=== PATIENT | female | born 1960 ===

== ENCOUNTER 2016-05-15 09:14 | Day surgery (SDC) | payer OTHER ==
[2016-04-19 08:30] VITALS: BMI 40.6
[2016-05-15] MEDS ORDERED: Lactated Ringer's 500 ML IV ONE (10:18)
[2016-05-15] MEDS ORDERED: Propofol 10 mg/ml Inj (20 ML) ONE (10:56)
[2016-05-15 12:10] VITALS: BP 97/49; PULSE 68; RESP 14; TEMP 96.9; O2SAT 97
== END 2016-05-15 12:29 | disposition home or self-care (01) ==
LOC: H.ENDO 09:14
PROVIDERS: ATTEND Internal Medicine Gastroenterology
DX: Z12.11 Encounter for screening for malignant neoplasm of colon (principal); E11.9 Type 2 diabetes mellitus without complications; E78.5 Hyperlipidemia, unspecified; K64.8 Other hemorrhoids

== ENCOUNTER 2016-09-07 12:24 | Emergency (ER) | payer SELFPAY ==
[2016-09-07 12:32] VITALS: RESP 19; O2SAT 98; BMI 40.0
[2016-09-07] MEDS ORDERED: Sodium Chloride 0.9% 1,000 ML IV STA (12:39)
[2016-09-07] MEDS ORDERED: DiphenhydrAMINE 50 mg/ml Inj IV STA (12:40)
[2016-09-07] MEDS ORDERED: DiphenhydrAMINE 50 mg/ml Inj ONE (12:56)
[2016-09-07 13:46] LABS: BASO # 0.1 K/uL (0.0-0.2); BASO % 1.3 % (0.0-2.0); EOS # 0.1 K/uL (0.0-0.7); EOS % 1.5 % (0.0-4.0); HEMOGLOBIN 12.4 g/dL (12.0-16.0); LYMPH # 2.6 K/uL (1.0-4.3); LYMPH % 32.4 % (20.0-40.0); MEAN CELL VOLUME 74.9 fl (81.0-99.0); MEAN CORPUSCULAR HEMOGLOBIN 23.4 pg (27.0-31.0); MEAN CORPUSCULAR HGB CONC 31.3 g/dL (33.0-37.0); MEAN PLATELET VOLUME 8.5 fl (7.2-11.7); MONO # 0.5 K/uL (0.0-0.8); MONO % 6.5 % (0.0-10.0); NEUT # 4.7 K/uL (1.8-7.0); NEUT % 58.3 % (50.0-75.0); RBC 5.29 Mil/uL (3.80-5.20); RED CELL DISTRIBUTION WIDTH 18.4 % (11.5-14.5); WHITE BLOOD COUNT 8.1 K/uL (4.8-10.8)
[2016-09-07 13:52] LABS: BLOOD UREA NITROGEN 14 mg/dl (7-17); CALCIUM 9.9 mg/dL (8.4-10.2); GFR AFRICAN-AMERICAN > 60; GFR NON-AFRICAN AMERICAN > 60
--- NOTE | 2016-09-07 16:17 | ED PDOC ---
HPI: General Adult Time Seen by Provider: 09/07/16 12:38 Chief Complaint (Nursing): Headache Chief Complaint (Provider): headache, facial tingling History Per: Patient History/Exam Limitations: no limitations Current Symptoms Are (Timing): Still Present Recently: Treated By A Physician Additional Complaint(s): 56yo female c/o headache and facial tingling which started during an MRI of the brain with contrast. She states the banging sound of the MRI triggered the headache. She denies SOB, chest pain, throat swelling, rash or syncope. Past Medical History Reviewed: Historical Data, Nursing Documentation, Vital Signs Vital Signs: Last Vital Signs Temp 97.6 F 09/07/16 12:32 Pulse 70 09/07/16 12:32 Resp 19 09/07/16 12:32 BP 145/102 H 09/07/16 12:32 Pulse Ox 98 09/07/16 12:32 - Medical History PMH: Depression, Gastritis, Gastrointestinal Ulcer, HTN, Hypercholesterolemia, Hyperthyroidism Denies: Chronic Kidney Disease - Surgical History Surgical History: Endoscopy - Family History Family History: States: Unknown Family Hx - Social History Current smoker - smoking cessation education provided: No - Home Medications Home Medications: Ambulatory Orders Medication Instructions Recorded Lisinopril [Zestril] 10 mg PO DAILY #0 tab 12/02/14 Omeprazole [Prilosec] 20 mg PO DAILY #0 ecc 12/02/14 metFORMIN [glucOPHAGE] 500 mg PO BIDWM #0 tab 12/02/14 Bupropion HCl [Wellbutrin Sr] 150 mg PO DAILY 05/15/16 traMADol/Acetaminophen [Ultracet 1 tab PO Q4 PRN #12 tab 09/07/16 325 MG-37.5 MG] - Allergies Allergies/Adverse Reactions: Allergies Allergy/AdvReac Type Severity Reaction Status Date / Time Sulfa (Sulfonamide Allergy RASH Verified 12/07/15 11:11 Antibiotics) Review of Systems ROS Statement: Except As Marked, All Systems Reviewed And Found Negative Constitutional: Negative for: Fever, Chills Respiratory: Negative for: Cough, Shortness of Breath Gastrointestinal: Negative for: Nausea, Vomiting Musculoskeletal: Negative for: Neck Pain, Shoulder Pain Skin: Negative for: Rash, Lesions Neurological: Positive for: Headache, Dizziness. Negative for: Weakness, Numbness Physical Exam - Reviewed Nursing Documentation Reviewed: Yes Vital Signs Reviewed: Yes - Physical Exam Appears: Positive for: Well, Non-toxic, No Acute Distress Head Exam: Positive for: ATRAUMATIC, NORMAL INSPECTION, NORMOCEPHALIC Skin: Positive for: Normal Color, Warm, DRY Eye Exam: Positive for: EOMI, Normal appearance, PERRL ENT: Positive for: Normal ENT Inspection Neck: Positive for: Normal, Painless ROM Cardiovascular/Chest: Positive for: Regular Rate, Rhythm Respiratory: Positive for: CNT, Normal Breath Sounds Gastrointestinal/Abdominal: Positive for: Normal Exam, Bowel Sounds, Soft Back: Positive for: Normal Inspection Extremity: Positive for: Normal ROM Neurologic/Psych: Positive for: Alert, chief 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 Negative for: Motor/Sensory Deficits - Laboratory Results Result Diagrams: 09/07/16 13:20 09/07/16 13:20 - ECG O2 Sat by Pulse Oximetry: 98 Medical Decision Making Medical Decision Making: MRI brain reviewed Accession No. : [id number] Patient Name / ID : JUANA GUERRA / [id number] Exam Date : 09/07/2016 11:11:35 ( Approved ) Study Comment : Sex / Age : F / 56Y Creator : Alvarado Barrow MD Dictator : Alvarado Barrow MD Fly Fishing Guide : Medical Typist : Alvarado Barrow MD Approver2 : Report Date : 09/07/2016 13:59:51 My Comment : PROCEDURE: MRI BRAIN WITH AND WITHOUT CONTRAST HISTORY: R51 COMPARISON: Comparison made with prior CT scan brain 12/11/11 TECHNIQUE: Multiplanar, multisequence MR images of the brain were obtained with and without intravenous contrast enhancement. FINDINGS: HEMORRHAGE: No acute parenchymal, subarachnoid or extra-axial hemorrhage. No evidence of hemosiderin deposition identified on gradient echo weighted sequence DWI: No evidence of an acute or early subacute infarction seen on diffusion imaging. . BRAIN PARENCHYMA: Minor chronic periventricular white matter ischemic changes. ENHANCEMENT: No enhancing parenchymal nor extra-axial masses or collections. No evidence of unusual meningeal enhancement. VENTRICLES: Unremarkable. No hydrocephalus. CRANIUM: Unremarkable. ORBITS: Grossly unremarkable. PARANASAL SINUSES/MASTOIDS: Appears be some minor opacification of few left inferior mastoid air cells. VASCULAR SYSTEM: Visualized major vascular flow voids at skull base are patent. OTHER FINDINGS: There may also be a few small left peripancreatic lymph nodes nonspecific IMPRESSION: No acute intracranial hemorrhage or infarct. Mild chronic white matter ischemic changes. Labs reviewed, no clinically significant abnormalities. Given IVF, toradol, benadryl and tylenol w improvement. Vitals stable and remains neurologically intact. Given clinical exam and normal MRI brain, DC from ED. Followup clinic. Disposition - Clinical Impression Clinical Impression: Headache - Patient ED Disposition Is Patient to be Admitted: No Counseled Patient/Family Regarding: Studies Performed, Diagnosis - Disposition Referrals: [facility] [Outside] Disposition: Routine/Home Disposition Time: 16:00 Condition: STABLE Prescriptions: traMADol/Acetaminophen [Ultracet 325 MG-37.5 MG] 1 tab PO Q4 PRN #12 tab PRN Reason: Pain, Moderate (4-7) Instructions: Acute Headache (ED) Print Language: SLOVENIAN
[2016-09-08 11:58] VITALS: BP 150/83; PULSE 78
[2016-09-08 12:00] VITALS: TEMP 97.7
== END 2016-09-07 18:10 | disposition home or self-care (01) ==
LOC: H.ER 12:24
DX: R51 Headache (principal); R20.2 Paresthesia of skin

== ENCOUNTER 2017-01-19 10:21 | Emergency (ER) | payer SELFPAY ==
[2017-01-19 10:28] VITALS: BMI 39.6
[2017-01-19 10:30] VITALS: BP 175/96; PULSE 74; RESP 17; TEMP 98.3; O2SAT 98
--- NOTE | 2017-01-19 11:33 | ED PDOC ---
HPI: General Adult Time Seen by Provider: 01/19/17 10:31 Chief Complaint (Nursing): Cough, Cold, Congestion History Per: Patient Additional Complaint(s): Pt. states for the past 6 days she's had a cough productive of white sputum and over the past 3 days cough worsened. States that she's also developed a fever x 3 days. She took Motrin today at 0500 as she had a temperature of 104 prompting ED visit. Of note, pt.'s daughter has the same symptoms. Denies SOB, hemoptysis , chest pain, abdominal pain, headache, rash. Past Medical History Reviewed: Historical Data, Nursing Documentation, Vital Signs Vital Signs: Last Vital Signs Temp 98.3 F 01/19/17 10:28 Pulse 74 01/19/17 10:28 Resp 17 01/19/17 10:28 BP 175/96 H 01/19/17 10:28 Pulse Ox 98 01/19/17 11:33 - Medical History PMH: Depression, Gastritis, Gastrointestinal Ulcer, HTN, Hypercholesterolemia, Hyperthyroidism Denies: Chronic Kidney Disease - Surgical History Surgical History: Endoscopy - Family History Family History: States: No Known Family Hx - Home Medications Home Medications: Ambulatory Orders Medication Instructions Recorded Lisinopril [Zestril] 10 mg PO DAILY #0 tab 12/02/14 Omeprazole [Prilosec] 20 mg PO DAILY #0 ecc 12/02/14 metFORMIN [glucOPHAGE] 500 mg PO BIDWM #0 tab 12/02/14 Bupropion HCl [Wellbutrin Sr] 150 mg PO DAILY 05/15/16 Metoclopramide [Reglan] 10 mg PO BID PRN #10 tab 09/07/16 Naproxen [Naprosyn] 500 mg PO BID PRN #14 tablet 09/07/16 traMADol/Acetaminophen [Ultracet 1 tab PO Q4 PRN #12 tab 09/07/16 325 MG-37.5 MG] Amoxicillin/Clavulanate [Augmentin 1 tab PO TID #30 tab 01/19/17 500 MG-125 MG] Benzonatate [Tessalon Perle] 100 mg PO Q8 PRN #30 capsule 01/19/17 Ibuprofen [Motrin Tab] 800 mg PO Q8 PRN #30 tab 01/19/17 - Allergies Allergies/Adverse Reactions: Allergies Allergy/AdvReac Type Severity Reaction Status Date / Time Sulfa (Sulfonamide Allergy RASH Verified 12/07/15 11:11 Antibiotics) Review of Systems ROS Statement: Except As Marked, All Systems Reviewed And Found Negative Constitutional: Positive for: Fever Respiratory: Positive for: Cough, Sputum (white) Physical Exam - Reviewed Nursing Documentation Reviewed: Yes Vital Signs Reviewed: Yes - Physical Exam Appears: Positive for: Well, Non-toxic, No Acute Distress Head Exam: Positive for: ATRAUMATIC, NORMAL INSPECTION, NORMOCEPHALIC Skin: Positive for: Normal Color, Warm. Negative for: Rash Eye Exam: Positive for: EOMI, Normal appearance, PERRL ENT: Positive for: TM Is/Are (L TM erythematous and bulging; R TM WNL). Negative for: Pharyngeal Erythema, Tonsillar Exudate, Tonsillar Swelling Neck: Positive for: Normal, Painless ROM, Supple Cardiovascular/Chest: Positive for: Regular Rate, Rhythm Respiratory: Positive for: CNT, Normal Breath Sounds Gastrointestinal/Abdominal: Positive for: Normal Exam, Bowel Sounds, Soft. Negative for: Tenderness Back: Positive for: Normal Inspection. Negative for: L CVA Tenderness, R CVA Tenderness Extremity: Positive for: Normal ROM Neurologic/Psych: Positive for: Alert, Oriented. Negative for: Aphasia, Facial Droop - Laboratory Results Result Diagrams: 01/19/17 11:40 01/19/17 11:40 - ECG O2 Sat by Pulse Oximetry: 98 - Progress ED Course And Treament: Labs ordered. CXR ordered. Disposition - Clinical Impression Clinical Impression: Influenza, Otitis media - Patient ED Disposition Is Patient to be Admitted: No - Disposition Referrals: [facility] [Outside] Disposition: Routine/Home Disposition Time: 12:20 Condition: STABLE Prescriptions: Amoxicillin/Clavulanate [Augmentin 500 MG-125 MG] 1 tab PO TID #30 tab Benzonatate [Tessalon Perle] 100 mg PO Q8 PRN #30 capsule PRN Reason: Cough Ibuprofen [Motrin Tab] 800 mg PO Q8 PRN #30 tab PRN Reason: fever or pain Instructions: Influenza (ED), Otitis Media (ED) Forms: [facility] (Syriac) Print Language: PORTUGUESE
[2017-01-19 11:49] LABS: BASO # 0.1 K/uL (0.0-0.2); BASO % 0.9 % (0.0-2.0); EOS # 0.2 K/uL (0.0-0.7); EOS % 2.8 % (0.0-4.0); HEMATOCRIT 41.2 % (34.0-47.0); LYMPH # 2.3 K/uL (1.0-4.3); LYMPH % 30.1 % (20.0-40.0); MEAN CORPUSCULAR HEMOGLOBIN 23.7 pg (27.0-31.0); MEAN CORPUSCULAR HGB CONC 31.6 g/dL (33.0-37.0); MEAN PLATELET VOLUME 8.2 fl (7.2-11.7); MONO # 0.6 K/uL (0.0-0.8); MONO % 7.7 % (0.0-10.0); NEUT # 4.5 K/uL (1.8-7.0); NEUT % 58.5 % (50.0-75.0); NRBC % 0.2 % (0.0-0.0); RED CELL DISTRIBUTION WIDTH 17.7 % (11.5-14.5); WHITE BLOOD COUNT 7.6 K/uL (4.8-10.8)
[2017-01-19 12:15] LABS: ALB/GLOB RATIO 1.3 (1.0-2.1); ALKALINE PHOSPHATASE 100 U/L (38-126); ALT/SGPT 34 U/L (9-52); AST/SGOT 20 U/L (14-36); BILIRUBIN,TOTAL 0.4 mg/dl (0.2-1.3); BLOOD UREA NITROGEN 12 mg/dl (7-17); CALCIUM 9.4 mg/dL (8.4-10.2); CARBON DIOXIDE 23 mmol/L (22-30); CHLORIDE 110 mmol/L (98-107); GFR AFRICAN-AMERICAN > 60; GLUCOSE,RANDOM 119 mg/dL (65-105); SODIUM 142 mmol/l (132-148); TOTAL PROTEIN 7.5 G/DL (6.3-8.2)
--- NOTE | 2017-01-19 14:53 | RAD ---
HISTORY: cough COMPARISON: No prior. TECHNIQUE: Chest PA and lateral FINDINGS: LUNGS: No active pulmonary disease. PLEURA: No significant pleural effusion identified. No pneumothorax apparent. CARDIOVASCULAR: Normal. OSSEOUS STRUCTURES: No significant abnormalities. VISUALIZED UPPER ABDOMEN: Normal. OTHER FINDINGS: None. IMPRESSION: No active disease.
== END 2017-01-19 14:38 | disposition home or self-care (01) ==
LOC: H.ER 10:21
DX: J11.1 Influenza due to unidentified influenza virus with other respiratory manifestations (principal); H66.90 Otitis media, unspecified, unspecified ear; E05.90 Thyrotoxicosis, unspecified without thyrotoxic crisis or storm; E78.00 Pure hypercholesterolemia, unspecified; F32.9 Major depressive disorder, single episode, unspecified; I10 Essential (primary) hypertension; Z79.84 Long term (current) use of oral hypoglycemic drugs

== ENCOUNTER 2017-07-27 13:37 | Emergency (ER) | payer SELFPAY ==
[2017-07-27 13:37] VITALS: BMI 39.6
--- NOTE | 2017-07-27 15:02 | ED PDOC ---
HPI: CCC, URI, Sore Throat Time Seen by Provider: 07/27/17 14:14 Chief Complaint (Nursing): ENT Problem Chief Complaint (Provider): Right ear and throat pain History Per: Patient History/Exam Limitations: no limitations Have you had recent travel within the past 21 days to any of the following countries: [place], [place], [place] or [place]?: No Onset/Duration Of Symptoms: Days (x3) Current Symptoms Are (Timing): Still Present Sick Contacts (Context): Family Member(s) Associated Symptoms: denies: Fever, Cough, Nausea, Vomiting Ear Symptoms: Right: Ear Pain Additional Complaint(s): 57 year old female presented to the ED for evaluation of right ear and throat pain with onset of 3 days. Patient reports she developed a right sided headache with a rating of 6/10 secondary to pain. She took advil this morning at 06:00 for her pain and indicates multiple sick contacts. Denies fever, cough , SOB, abdominal pain, nausea, vomiting, recent travel, changes in vision, weakness, numbness, rash, neck pain, and stiffness. PMD: [facility] Past Medical History Reviewed: Historical Data, Nursing Documentation, Vital Signs Vital Signs: Last Vital Signs Temp 98 F 07/27/17 17:40 Pulse 80 07/27/17 17:40 Resp 18 07/27/17 17:40 BP 120/76 07/27/17 17:40 Pulse Ox 99 07/27/17 17:40 - Medical History PMH: Depression, Diabetes, Gastritis, Gastrointestinal Ulcer, HTN, Hypercholesterolemia, Hyperthyroidism Denies: Chronic Kidney Disease - Surgical History Surgical History: Endoscopy Other surgeries: Right foot procedure - Family History Family History: States: Unknown Family Hx - Social History Current smoker - smoking cessation education provided: No Alcohol: None Drugs: Denies - Home Medications Home Medications: Ambulatory Orders Medication Instructions Recorded Lisinopril [Zestril] 10 mg PO DAILY #0 tab 12/02/14 Omeprazole [Prilosec] 20 mg PO DAILY #0 ecc 12/02/14 metFORMIN [glucOPHAGE] 500 mg PO BIDWM #0 tab 12/02/14 Bupropion HCl [Wellbutrin Sr] 150 mg PO DAILY 05/15/16 Metoclopramide [Reglan] 10 mg PO BID PRN #10 tab 09/07/16 Naproxen [Naprosyn] 500 mg PO BID PRN #14 tablet 09/07/16 traMADol/Acetaminophen [Ultracet 1 tab PO Q4 PRN #12 tab 09/07/16 325 MG-37.5 MG] Amoxicillin/Clavulanate [Augmentin 1 tab PO TID #30 tab 01/19/17 500 MG-125 MG] Benzonatate [Tessalon Perle] 100 mg PO Q8 PRN #30 capsule 01/19/17 Ibuprofen [Motrin Tab] 800 mg PO Q8 PRN #30 tab 01/19/17 Meloxicam [Mobic] 15 mg PO DAILY PRN #10 tab 07/27/17 - Allergies Allergies/Adverse Reactions: Allergies Allergy/AdvReac Type Severity Reaction Status Date / Time Sulfa (Sulfonamide Allergy RASH Verified 12/07/15 11:11 Antibiotics) Review of Systems ROS Statement: Except As Marked, All Systems Reviewed And Found Negative Constitutional: Negative for: Fever, Chills ENT: Positive for: Ear Pain (right), Throat Pain Respiratory: Negative for: Cough, Shortness of Breath Gastrointestinal: Negative for: Nausea, Vomiting, Abdominal Pain Musculoskeletal: Negative for: Neck Pain (or stiffness) Neurological: Negative for: Weakness, Numbness Physical Exam - Reviewed Nursing Documentation Reviewed: Yes Vital Signs Reviewed: Yes - Physical Exam Comments: GENERAL APPEARANCE: Patient is awake, alert, oriented x 3, in no acute distress. SKIN: Warm, dry; (-) cyanosis. HEAD: (-) temporal artery tenderness NECK: Supple, FROM (-) stiffness, (-) tenderness, (-) lymphadenopathy. ENMT: Ear Canals : (-) erythema, (-) exudate. TMs: (-) bulging and (-) erythema (-) perforation,(-) vesicles bilaterally. Frontal / maxillary sinuses : (-) tenderness. (-) TMJ tenderness. Pharynx: 2+ tonsilar hypertrophy, clear; (+) erythema, (-) exudate. Uvula: midline. Nares: patent (-) rhinorrhea. CHEST AND RESPIRATORY: (-) rales, (-) rhonchi, (-) wheezes; breath sounds equal bilaterally. Respirations even and nonlabored, speaking in full sentences. HEART AND CARDIOVASCULAR: (-) irregularity; (-) murmur, (-) gallop. ABDOMEN: Soft, nontender, nondistended. Neuro: Mental status as above. Gait steady, speech clear. (-) facial asymmetry ( -) aphasia. EOMI and painless. Pupils reactive. Cerebellar tests intact. Cranial nerves II- XII grossly intact. Strength symmetric throughout. - ECG O2 Sat by Pulse Oximetry: 97 (RA) Pulse Ox Interpretation: Normal Medical Decision Making Medical Decision Making: Initial Impression: Viral pharyngitis and otalgia Initial Plan: Dexamethasone 10mg IM Naproxen 500mg PO Throat culture Rapid strep 1720 Rapid Strep: Negative On re-evaluation, patient reports improvement of symptoms. On exam, patient remains AAOx3, in no acute distress. On exam, neck is supple, lungs CTA, cardiac RRR, abdomen is soft and non-tender, neuro exam shows no focal findings. Vitals stable, stable for discharge. Diagnostic results d/w the patient in great detail. Dx of viral pharyngitis, otalgia d/w the patient. Based on history, exam and diagnostic results plan will be for discharge and outpatient follow up. Advised to follow up with primary care physician in 1-2 days without fail. Advised to take medication as prescribed. Return to the emergency room at any time for any new or worsening symptoms. Patient states she fully agrees with and understands discharge instructions. States that she agrees with the plan and disposition. Verbalized and repeated discharge instructions and plan. I have given the patient opportunity to ask any additional questions. Scribe Attestation: Documented by Denny Kay acting as a scribe for Terese HOGUE. Provider Scribe Attestation: All medical record entries made by the Scribe were at my direction and personally dictated by me. I have reviewed the chart and agree that the record accurately reflects my personal performance of the history, physical exam, medical decision making, and the department course for this patient. I have also personally directed, reviewed, and agree with the discharge instructions and disposition. Disposition - Clinical Impression Clinical Impression: Right ear pain, Headache, Viral pharyngitis - Patient ED Disposition Is Patient to be Admitted: No Counseled Patient/Family Regarding: Studies Performed, Diagnosis, Need For Followup, Rx Given - Disposition Referrals: Mervat Quinn MD [Resident] - Disposition: Routine/Home Disposition Time: 17:21 Condition: STABLE Additional Instructions: FOLLOW UP WITH PMD IN 1-2 DAYS WITHOUT FAIL. RETURN TO ED WITH ANY NEW OR WORSENING SYMPTOMS. Prescriptions: Meloxicam [Mobic] 15 mg PO DAILY PRN #10 tab PRN Reason: Pain, Moderate (4-7) Instructions: Viral Pharyngitis, Headache, Adult Forms: [facility] (Macedonian) Print Language: ROMANIAN - POA Present On Arrival: None Results - Lab Results Lab Results: 07/27/17 16:48 Grp A Beta Strep Ag Negative
[2017-07-27] MEDS ORDERED: Naproxen 500 MG TAB PO STA (15:03)
[2017-07-27] MEDS ORDERED: Naproxen 500 MG TAB PO ONE (15:41)
[2017-07-27 17:33] VITALS: RESP 18
[2017-07-28 01:23] VITALS: BP 120/76; PULSE 80; TEMP 98
[2017-07-29 00:16] VITALS: O2SAT 97
== END 2017-07-27 17:40 | disposition home or self-care (01) ==
LOC: H.ER 13:37
DX: H92.01 Otalgia, right ear (principal); R51 Headache; J02.9 Acute pharyngitis, unspecified; E11.9 Type 2 diabetes mellitus without complications; I10 Essential (primary) hypertension; Z79.84 Long term (current) use of oral hypoglycemic drugs; Z86.59 Personal history of other mental and behavioral disorders; E78.00 Pure hypercholesterolemia, unspecified; E05.90 Thyrotoxicosis, unspecified without thyrotoxic crisis or storm
CPT/HCPCS: 87070; 87430; 96372; 99283; J1100

== ENCOUNTER 2018-06-24 09:40 | Emergency (ER) | payer SELFPAY ==
[2018-06-24 09:47] VITALS: O2SAT 98
[2018-06-24 09:48] VITALS: BMI 37.3
[2018-06-24] MEDS ORDERED: Sodium Chloride 0.9% 1,000 ML IV STA ×2 (10:28→12:49)
--- NOTE | 2018-06-24 10:51 | ED PDOC ---
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 She reports associated subjective fever as well. She denies any dysuria, hematuria, vaginal bleeding or discharge. Patient has not taken any medication for pain. PMD: [facility] Past Medical History Reviewed: Historical Data, Nursing Documentation, Vital Signs Vital Signs: Last Vital Signs Temp 97.5 F L 06/24/18 09:47 Pulse 76 06/24/18 09:47 Resp 16 06/24/18 09:47 BP 134/81 06/24/18 09:47 Pulse Ox 98 06/24/18 09:47 - Medical History PMH: Depression, Diabetes, Gastritis, Gastrointestinal Ulcer, HTN, Hypercholesterolemia, Hyperthyroidism Denies: Chronic Kidney Disease - Surgical History Surgical History: Endoscopy - Family History Family History: States: Unknown Family Hx - Home Medications Home Medications: Ambulatory Orders Medication Instructions Recorded Lisinopril [Zestril] 10 mg PO DAILY #0 tab 12/02/14 Omeprazole [Prilosec] 20 mg PO DAILY #0 ecc 12/02/14 metFORMIN [glucOPHAGE] 500 mg PO BIDWM #0 tab 12/02/14 Bupropion HCl [Wellbutrin Sr] 150 mg PO DAILY 05/15/16 Metoclopramide [Reglan] 10 mg PO BID PRN #10 tab 09/07/16 Naproxen [Naprosyn] 500 mg PO BID PRN #14 tablet 09/07/16 traMADol/Acetaminophen [Ultracet 1 tab PO Q4 PRN #12 tab 09/07/16 325 MG-37.5 MG] Amoxicillin/Clavulanate [Augmentin 1 tab PO TID #30 tab 01/19/17 500 MG-125 MG] Benzonatate [Tessalon Perle] 100 mg PO Q8 PRN #30 capsule 01/19/17 Ibuprofen [Motrin Tab] 800 mg PO Q8 PRN #30 tab 01/19/17 Meloxicam [Mobic] 15 mg PO DAILY PRN #10 tab 07/27/17 Dicyclomine [Bentyl] 20 mg PO QID PRN #10 tab 06/24/18 Ondansetron ODT [Zofran ODT] 4 mg PO Q8H PRN #20 odt 06/24/18 - Allergies Allergies/Adverse Reactions: Allergies Allergy/AdvReac Type Severity Reaction Status Date / Time Sulfa (Sulfonamide Allergy RASH Verified 12/07/15 11:11 Antibiotics) Review of Systems ROS Statement: Except As Marked, All Systems Reviewed And Found Negative Constitutional: Positive for: Fever, Chills Gastrointestinal: Positive for: Nausea, Vomiting, Abdominal Pain, Diarrhea Genitourinary Female: Negative for: Dysuria, Frequency, Hematuria Physical Exam - Reviewed Nursing Documentation Reviewed: Yes Vital Signs Reviewed: Yes - Physical Exam Appears: Positive for: Non-toxic, Uncomfortable Head Exam: Positive for: ATRAUMATIC, NORMAL INSPECTION, NORMOCEPHALIC Skin: Positive for: Normal Color Eye Exam: Positive for: Normal appearance Neck: Positive for: Supple Cardiovascular/Chest: Positive for: Regular Rate, Rhythm. Negative for: Tachycardia Respiratory: Positive for: Normal Breath Sounds. Negative for: Respiratory Distress Gastrointestinal/Abdominal: Positive for: Soft, Tenderness (diffuse). Negative for: Mass, Guarding, Rebound Neurological/Psych: Positive for: Awake, Alert, Normal Tone - Laboratory Results Result Diagrams: 06/24/18 11:07 06/24/18 11:07 - ECG O2 Sat by Pulse Oximetry: 98 (RA) Pulse Ox Interpretation: Normal Medical Decision Making Medical Decision Making: Impression: Abdominal pain Plan: -- Labs -- Urinalysis -- CT Abdomen/Pelvis -- IV Fluids -- Zofran 4mg IV -- Morphine 2mg IV [address] Abdomen/Pelvis FINDINGS: LOWER THORAX: Unremarkable. LIVER: Normal size and contour. Diffusely diminished attenuation consistent with fatty infiltration. There is a circumscribed region of relative increased attenuation in the lateral segment of the left hepatic lobe measuring 4.1 x 6.8 cm. In addition, there is of less well-defined area of intermediate attenuation, intermediate between the lesion in the lateral segment left hepatic lobe and in the remainder of the liver. This is also seen in the lateral segment of the left hepatic lobe and likely represents fatty sparing to a lesser extent than t he 6.8 cm circumscribed lesion above. Vessels are seen to course in a normal fashion through both of these regions. However, further evaluation is suggested with magnetic resonance imaging with fat suppression to substantiate this diagnosis. No biliary dilatation. There is minimal focal fatty sparing seen about the gallbladder fossa. This is a characteristic location. GALLBLADDER AND BILE DUCTS: Unremarkable. PANCREAS: Unremarkable. No gross lesion or ductal dilatation. SPLEEN: Unremarkable. ADRENALS: Unremarkable. No mass. KIDNEYS AND URETERS: Unremarkable. No hydronephrosis. No solid mass. VASCULATURE: Unremarkable. No aortic aneurysm. No aortic atherosclerotic calcification or m ural plaque present. BOWEL: Unremarkable. No obstruction. No gross mural thickening. APPENDIX: Normal appendix. PERITONEUM: Unremarkable. No free fluid. No free air. LYMPH NODES: Unremarkable. No enlarged lymph nodes. BLADDER: Unremarkable. REPRODUCTIVE: Normal uterus BONES: No acute fracture. OTHER FINDINGS: None. IMPRESSION: Fatty liver. Probable focal fatty sparing in left hepatic lobe as described above. Recommend further evaluation with magnetic resonance imaging with fat suppression technique to further evaluate. 15:[address] Hutchinson, can follow-up as outpatient. Incidental findings on CT discussed with patient, including need for special MRI for further liver evaluation Obtained earlier appointment on 07/04 at 11:20am for follow up; patient informed on need for strict follow up. Agrees with plan and is stable for discharge home. ScribeAttestation: Documented byTri Rubio, acting as a scribe for Valeria Borges MD. Provider ScribeAttestation: All medical record entries made by the Scribe were at my direction and personally dictated by me. I have reviewed the chart and agree that the record accurately reflects my personal performance of the history, physical exam, medical decision making, and the department course for this patient. I have also personally directed, reviewed, and agree with the discharge instructions and disposition. Disposition - Clinical Impression Clinical Impression: Abdominal pain in female, Gastroenteritis - Disposition Referrals: [facility] [Outside] [facility] [Outside] Graham Hutchinson MD [Staff Provider] - Condition: IMPROVED Additional Instructions: FOLLOW-UP WITH CLINIC ON 07/14/18 @ 11:20 AM. Prescriptions: Dicyclomine [Bentyl] 20 mg PO QID PRN #10 tab PRN Reason: Pain, Moderate (4-7) Ondansetron ODT [Zofran ODT] 4 mg PO Q8H PRN #20 odt PRN Reason: Nausea/Vomiting Instructions: Acute Abdomen (Belly Pain), Gastroenteritis (ED) Forms: [facility] (Arabic) Print Language: UKRAINIAN
[2018-06-24 11:21] LABS: BASO # 0.1 K/uL (0.0-0.2); BASO % 0.8 % (0.0-2.0); EOS # 0.1 K/uL (0.0-0.7); EOS % 0.7 % (0.0-4.0); LYMPH % 28.3 % (20.0-40.0); MEAN CELL VOLUME 80.6 fl (81.0-99.0); MEAN CORPUSCULAR HEMOGLOBIN 25.6 pg (27.0-31.0); MEAN CORPUSCULAR HGB CONC 31.8 g/dL (33.0-37.0); MEAN PLATELET VOLUME 8.9 fl (7.2-11.7); MONO # 0.6 K/uL (0.0-0.8); MONO % 7.9 % (0.0-10.0); NEUT # 4.5 K/uL (1.8-7.0); NEUT % 62.3 % (50.0-75.0); NRBC % 0.1 % (0.0-0.0); RBC 5.45 Mil/uL (3.80-5.20); RED CELL DISTRIBUTION WIDTH 16.1 % (11.5-14.5); WHITE BLOOD COUNT 7.2 K/uL (4.8-10.8)
[2018-06-24 11:26] LABS: SQUAMOUS EPITHIAL 12 /hpf (0-5); URINE BACTERIA RARE (<OCC); URINE BILIRUBIN NEGATIVE (NEGATIVE); URINE BLOOD SMALL (NEGATIVE); URINE CLARITY CLOUDY (Clear); URINE COLOR AMBER (YELLOW); URINE GLUCOSE (UA) >=500 mg/dL (NEGATIVE); URINE LEUKOCYTE ESTERASE LARGE Leu/uL (Negative); URINE PROTEIN 100 mg/dL (NEGATIVE); URINE UROBILINOGEN 0.2-1.0 mg/dL (0.2-1.0)
[2018-06-24 11:28] LABS: INR 1.1
[2018-06-24 11:31] LABS: ALB/GLOB RATIO 1.4 (1.0-2.1); ALBUMIN 4.6 g/dL (3.5-5.0); ALT/SGPT 45 U/L (9-52); AST/SGOT 29 U/L (14-36); BLOOD UREA NITROGEN 26 mg/dl (7-17); CALCIUM 10.4 mg/dL (8.4-10.2); GFR NON-AFRICAN AMERICAN > 60; LIPASE 214 U/L (23-300); PARTIAL THROMBOPLASTIN TIME 30.2 Seconds (25.6-37.1)
--- NOTE | 2018-06-24 12:29 | CARD ---
APPROVED REPORT Date of service: 06/24/2018 EKG Measurement Heart [id number] <Conclusion> Normal sinus rhythm Inferior infarct, age undetermined Abnormal ECG
--- NOTE | 2018-06-24 13:45 | CT ---
Date of service: 06/24/2018 PROCEDURE: CT Abdomen and Pelvis with contrast HISTORY: Gen abd pain COMPARISON: None. TECHNIQUE: Contrast dose: 95 mL Omnipaque 300 Radiation dose: Total exam DLP = 765.74 mGy-cm. This CT exam was performed using one or more of the following dose reduction techniques: Automated exposure control, adjustment of the mA and/or kV according to patient size, and/or use of iterative reconstruction technique. FINDINGS: LOWER THORAX: Unremarkable. LIVER: Normal size and contour. Diffusely diminished attenuation consistent with fatty infiltration. There is a circumscribed region of relative increased attenuation in the lateral segment of the left hepatic lobe measuring 4.1 x 6.8 cm. In addition, there is of less well-defined area of intermediate attenuation, intermediate between the lesion in the lateral segment left hepatic lobe and in the remainder of the liver. This is also seen in the lateral segment of the left hepatic lobe and likely represents fatty sparing to a lesser extent than the 6.8 cm circumscribed lesion above. Vessels are seen to course in a normal fashion through both of these regions. However, further evaluation is suggested with magnetic resonance imaging with fat suppression to substantiate this diagnosis. No biliary dilatation. There is minimal focal fatty sparing seen about the gallbladder fossa. This is a characteristic location. GALLBLADDER AND BILE DUCTS: Unremarkable. PANCREAS: Unremarkable. No gross lesion or ductal dilatation. SPLEEN: Unremarkable. ADRENALS: Unremarkable. No mass. KIDNEYS AND URETERS: Unremarkable. No hydronephrosis. No solid mass. VASCULATURE: Unremarkable. No aortic aneurysm. No aortic atherosclerotic calcification or mural plaque present. BOWEL: Unremarkable. No obstruction. No gross mural thickening. APPENDIX: Normal appendix. PERITONEUM: Unremarkable. No free fluid. No free air. LYMPH NODES: Unremarkable. No enlarged lymph nodes. BLADDER: Unremarkable. REPRODUCTIVE: Normal uterus BONES: No acute fracture. OTHER FINDINGS: None. IMPRESSION: Fatty liver. Probable focal fatty sparing in left hepatic lobe as described above. Recommend further evaluation with magnetic resonance imaging with fat suppression technique to further evaluate.
[2018-06-24] MEDS ORDERED: Insulin Regular 100 units/ml IV STA (14:14)
[2018-06-24 16:20] VITALS: BP 130/80; PULSE 72; RESP 18; TEMP 98
== END 2018-06-24 16:19 | disposition home or self-care (01) ==
LOC: H.ER 09:40
DX: R10.2 Pelvic and perineal pain (principal); K52.9 Noninfective gastroenteritis and colitis, unspecified; E11.9 Type 2 diabetes mellitus without complications; Z79.84 Long term (current) use of oral hypoglycemic drugs; Z79.899 Other long term (current) drug therapy; Z88.2 Allergy status to sulfonamides; I10 Essential (primary) hypertension; Z86.59 Personal history of other mental and behavioral disorders; E78.00 Pure hypercholesterolemia, unspecified
CPT/HCPCS: 74177; 80053; 81003; 82948; 83690; 85025; 85610; 85730; 93005; 99284; J2270; J2405; J7030